=== PATIENT | female | born 1995 | race Caucasian/White ===

== ENCOUNTER 2016-04-12 20:00 | Emergency (ER) | payer MEDICAID ==
[2015-01-04 06:32] VITALS: BMI 23.2
[~2016-04-12 20:00] MED LIST: CLARITIN 10 MG10 MG PO; IBUPROFEN600 MG PO; MIRALAX17 GM PO; PERCOCET 5-3251 TAB PO; PRENAVITE1 TAB PO; PROBIOTIC1 EAC1 PO; ZOLOFT100 MG PO; ZYRTEC10 MG PO
[2016-04-12 21:44] LABS: APPEARANCE HAZY (CLEAR); BILIRUBIN NEGATIVE (NEGATIVE); COLOR YELLOW (YELLOW); GLUCOSE NEGATIVE (NEGATIVE); KETONE NEGATIVE (NEGATIVE); LEUKOCYTE ESTERASE 2+ (NEGATIVE); NITRITE NEGATIVE (NEGATIVE); PROTEIN NEGATIVE (NEGATIVE); SPECIFIC GRAVITY 1.015 (1.005-1.020); UROBILINOGEN NORMAL (NORMAL)
[2016-04-12 21:45] LABS: BACTERIA FEW /hpf (NONE SEEN); EPITHELIAL CELLS 0-5 /hpf (0-5); RED CELLS - URINE OCC /hpf (0-5)
[2016-04-12 21:49] LABS: HCG URINE NEGATIVE (NEGATIVE)
== END 2016-04-12 22:23 | disposition home or self-care (01) ==
LOC: D.ER 20:00
PROVIDERS: Family Medicine
DX: N76.0 Acute vaginitis (principal); R10.2 Pelvic and perineal pain

== ENCOUNTER 2016-05-11 09:38 | Day surgery (SDC) | payer MEDICAID ==
[~2016-05-11] VITALS: Ht 162.6 cm; Wt 47.3 kg
[2016-05-11 11:27] LABS: ALBUMIN 4.6 g/dL (3.4-5.0); ALKALINE PHOSPHATASE 92 U/L (46-116); ALT (SGPT) 26 U/L (10-68); BILIRUBIN - TOTAL 0.24 mg/dL (0.2-1.3); CALC OSMOLALITY 278 mosm/kg (275-300); CALCIUM 9.3 mg/dL (8.5-10.1); CARBON DIOXIDE 26.4 mmol/L (21.0-32.0); CHLORIDE - SERUM 104 mmol/L (98-107); CREATININE - SERUM 0.8 mg/dL (0.6-1.3); GLUCOSE 84 mg/dL (74-106); POTASSIUM - SERUM 4.3 mmol/L (3.5-5.1); PROTEIN - SERUM 8.7 g/dL (6.4-8.2); SODIUM 141 mmol/L (136-145); UREA NITROGEN 9 mg/dL (7-18); eGFR NON AFRICAN AMERICAN > 90 mL/min (90-120)
[2016-05-11 11:33] LABS: APPEARANCE SLT CLOUDY (CLEAR); BACTERIA MANY /hpf (NONE SEEN); BILIRUBIN NEGATIVE (NEGATIVE); COLOR YELLOW (YELLOW); GLUCOSE NEGATIVE (NEGATIVE); KETONE NEGATIVE (NEGATIVE); LEUKOCYTE ESTERASE 2+ (NEGATIVE); MUCUS >1+ /lpf (NONE SEEN); NITRITE NEGATIVE (NEGATIVE); PROTEIN 1+ mg/dL (NEGATIVE); UROBILINOGEN NORMAL (NORMAL); YEAST NONE SEEN /hpf (NONE SEEN)
[2016-05-11 11:34] LABS: BASOPHILS 0.4 % (0.0-2.0); EOSINOPHILS 0.5 % (0-7); HEMOGLOBIN 15.1 g/dL (12-16); IMMATURE GRANULOCYTES 0.1 % (0-5); LYMPHOCYTES 21.2 % (15-50); MCH 31.1 pg (26.0-34.0); MCHC 33.6 g/dL (31.0-37.0); MCV 92.8 fL (80.0-100.0); MEAN PLATELET VOLUME 10.6 fL (7.4-10.4); NEUTROPHILS 72.8 % (40-80); PLATELET COUNT 284 10x3/uL (130-400); RBC 4.85 10x6/uL (4.00-5.40); RDW 13.4 % (11.5-14.5); WBC 8.2 10x3/uL (4.8-10.8)
[2016-05-11 15:11] LABS: HCG URINE NEGATIVE (NEGATIVE)
--- NOTE | 2016-05-11 17:33 | NUR ---
BLAKELY REPLACED BY DR. BATES DUE TO INFECTION AROUND URETHRA WITH INITIAL BLAKELY CATHETER.
--- NOTE | 2016-05-11 17:38 | NUR ---
700ML YELLOW URINE
[2016-05-11 18:27] VITALS: BP 108/66
--- NOTE | 2016-05-11 18:42 | NUR ---
RECD TO ROOM 2227 VIA BED AT PRESENT.
--- NOTE | 2016-05-11 18:50 | NUR ---
PATIENT SITTING UP IN BED WITH IV INTACT. VS STABLE. EATING REGULAR DIET AT THIS TIME. NO COMPLAINTS. WILL CONTINUE TO MONITOR. CALL SHELLY MARTINEZ.
[2016-05-11 19:00] VITALS: BP 100/55
--- NOTE | 2016-05-11 19:00 | NUR ---
PATIENT IN BED WATCHING TV. HOB 30 DEGREES. AAOX4. RR EVEN AND UNLABORED. 0 S/S OF DISTRESS. STATES PAIN IS A 7/10. IV TO LEFT AC PATENT WITH NO REDNESS OR SWELLING. BLAKELY SECURED WITH STATLOCK AND DRAINING TO GRAVITY. SRX2. BED LOW. CALL LIGHT WITHIN REACH.
--- NOTE | 2016-05-11 20:40 | OP ---
PATIENT NAME: TEETEE GURROLA MEDICAL RECORD: [id number] :95 LOCATION:[id number] ADMISSION DATE: SURGEON: CONRADO BATES MD DATE OF OPERATION: 05/11/2016 She is also a patient of Dr. Jayne Baker. PRIMARY SURGEON: Conrado Bates MD. MIXING TUMBLER OPERATOR SURGEON: None. ANESTHESIA: General anesthesia by Dr. Zhao and Shan Barnett CRNA. PREOPERATIVE DIAGNOSIS: Periurethral abscess. 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 PROCEDURES: Cystoscopy, excision of urethral diverticulum. SPECIMEN: Culture swabs and urethral diverticulum. ESTIMATED BLOOD LOSS: 100 mL. INDICATIONS: This is a 20-year-old female, , A0 who had her last menstrual period about 2 weeks ago. She has noticed increasing pain in the anterior vaginal area and in the region of the urethral meatus. She saw Dr. Baker about this yesterday and Dr. Baker noted that the mass or bulge was located just inferior to the urethral meatus posteriorly. There was a concern about a urethral diverticulum being present. Today, she went to the Emergency Room with increasing pain and she had an MRI with IV contrast performed of the pelvis. This showed a 1.2 cm mass near the distal urethra, which seemed not to communicate with the urethra. When I saw the patient, she was having in extreme amount of pain and it was difficult to fully examine her. However, when I pushed on the mass gently, no pus came out of the urethra. She was scheduled to have excision of a periurethral abscess as well as cystoscopy to verify the integrity of the urethra. She was given Ancef 1 gram IV in the Emergency Room. DESCRIPTION OF PROCEDURE: The patient was brought up to the operating room. She was given induction of general anesthesia. She was placed in the dorsal lithotomy position and prepped and draped. Upon examining the patient, I noted that there is about a 5 or 6 mm laceration in the right labia minora where it meets the vaginal mucosa. I was not certain what this is due to. Also, the vaginal cavity was filled with pus. We swabbed this pus with for bacteria as well as chlamydia, gonorrhea and syphilis. Due to the possibility of vaginitis, I asked anesthesia to give her metronidazole 500 mg IV also. We then used a 21-Armenian cystoscope with 30-degree lens for visualization. Normal saline was used for visualization. She has single ureteral orifices on each side. No bladder tumors were seen. Looking carefully at the urethra, no sign of an opening from a urethral diverticulum was seen in the urethra. The bulge was just inferior to the urethral meatus and towards the right side. I rachele an upside down U over this mass with marking pen. My intention was to create a vaginal mucosal flap and then dissect this abscess cavity out. The anterior vaginal wall was infiltrated with Pitressin solution. Twenty units of Pitressin was dissolved in 100 cc of normal saline and this solution was injected with a OPERATIVE REPORT [id number] TEETEE GURROLA 25-gauge needle to produce hydrodissection. The upside down U incision was then made with a #15 blade and then Metzenbaum scissors were used to raise a vaginal mucosal flaps. We had the discrete, round, soft infected glans well exposed. I attempted to put a Jack forceps on it for traction to try to get at the base of the glans. In doing this, we saw copious quantities of pus coming out of the ulceration on the right labia minora and also out of the urethra. This then indicates spontaneous drainage tracts from the periurethral abscess to create a urethral diverticulum. Further dissection was performed until we identified the communication of the urethral diverticulum to the urethra. About 3-4 mm of the urethra was excised with the urethral diverticulum. We could see the Mcgrath catheter, which is a 16-Armenian Mcgrath catheter inserted after cystoscopy through the defect in the urethra. This is at the very distal urethra and therefore should not affect her urinary continence. The tail of the abscess ran deeper onto the patient's right side around the lateral aspect of the urethra. There was no further involvement of the urethra towards the tail. We used Bovie to finally truncate the tail when we got to normal tissue. This created some bleeding from the bladder. With good visualization, we cauterized the bleeding source as well as we could, also a lap sponge was placed in there and pressure was applied for about 5 minutes to stanch the bleeding. The specimen was sent to pathology in formalin. At the end of the 5 minutes, we removed the lap sponge. There was still a little bit of bleeding, which was venous in nature. The urethra was repaired with running 4-0 Monocryl. We then inserted some Surgicel into the location of the apex of the periurethral glands where its blood supply had been and applied some more pressure and this stopped the bleeding. The vaginal mucosa was reapproximated using running 4-0 Monocryl. I also repaired the ulceration on the right labia minora where it had burst open spontaneously to drain the pus. The vaginal cavity was washed out with normal saline and the saline was suctioned out. Because the Mcgrath catheter that we inserted during surgery had been contaminated with pus, we deflated the balloon and removed this Mcgrath catheter. A brand new Mcgrath catheter was inserted at the end of the case and put to bag drainage. She will have this Mcgrath catheter for a period of 6 weeks to allow the urethra to heal. A vaginal packing consisting of Kerlix, 2 inches wide infiltrated with Silvadene cream was placed into the vagina. The patient was awakened and brought to the recovery room. I will keep her overnight for observation. TRANSINT:[id number] Voice Confirmation ID: [id number] DOCUMENT ID: [id number] CONRADO BATES MD at 2040 CC: [id number] DICTATION DATE: 05/11/161817 CARDIOGRAPH OPERATOR: 05/11/161954 [facility] [address] [place] [address]
--- NOTE | 2016-05-11 22:00 | NUR ---
ASSESSMENT COMPLETE. INITIATED ANTIBIOTICS PER ORDER. PERCOCET GIVEN FOR PAIN. ZOFRAN GIVEN FOR NAUSEA PER TELEPHONE ORDER FROM DR. BATES. WILL REASSESS.
[2016-05-11 23:00] VITALS: BP 102/36
--- NOTE | 2016-05-12 | NUR ---
PATIENT SLEEPING WITH NO DISTRESS NOTED. CALL LIGHT WITHIN REACH.
--- NOTE | 2016-05-12 04:40 | NUR ---
PATIENT C/O PAIN. STATES THAT PERCOCET DID NOT REALLY HELP LAST NIGHT. MORPHINE GIVEN PER ORDER. WILL REASSESS.
[2016-05-12 04:52] VITALS: Ht 162.6 cm; Wt 47.3 kg
[2016-05-12] MEDS ORDERED: ZYRTEC10 MG PO (04:57)
[2016-05-12] MEDS ORDERED: VALTREX1000 MG PO (04:58)
[2016-05-12] MEDS ORDERED: ZOLOFT100 MG PO (04:59)
[2016-05-12] MEDS ORDERED: AMBIEN10 MG PO (04:59)
--- NOTE | 2016-05-12 06:30 | NUR ---
VAGINAL PACKING REMOVED PER ORDER. PERCOCET GIVEN FOR PAIN AND ZOFRAN GIVEN FOR NAUSEA.
[2016-05-12 07:55] VITALS: BP 97/61
[2016-05-12] MEDS ORDERED: FLAGYL500 MG PO (09:33)
--- NOTE | 2016-05-12 09:35 | NUR ---
[place] [facility] [place] SPOKE WITH CADY, PHARMACIST.
--- NOTE | 2016-05-12 12:30 | NUR ---
EDUCATED PATIENT ON BLAKELY CARE, CHANGING OUT CATHETER BAG TO LEG BAG, AND BACK TO THE LARGER BAG. PATIENT DEMONSTRATED. SHOWED PATIENT HOW TO WORK THE STAT LOCK AND DEMONSTRATED. EXPLAINED AND SHOWED PATIENT HOW TO EMPTY CATHETER AND PATIENT DEMONSTRATED. PATIENT DENIES FURTHER QUESTIONS. EXPLAINED TO THE PATIENT THE IMPORTANCE OF KEEPING VAGINAL AREA CLEAN AND KEEPING BLAKELY CATHETER TUBING CLEANED. EXPLAINED TO PATIENT TO DO BLAKELY CATHETER TWICE A DAY. PATIENT VERBALIZED UNDERSTANDING STRESSING CONCERN FOR PAIN FROM SURGERY. EXPLAINED TO PATIENT TO PAT VAGINA CLEAN IF NEEDED, TO BE GENTLE BUT TO KEEP AREA CLEAN, AND TO DO BLAKELY CARE AFTER HAVING A BM. PATIENT VERBALIZED UNDERSTANDING. D/C IV WITH CATH INTACT.
--- NOTE | 2016-05-12 13:00 | NUR ---
PATIENT LEFT VIA WHEELCHAIR
== END 2016-05-12 13:00 | disposition home or self-care (01) ==
LOC: D.OPS 09:38 → D.ER 09:38 → D.MS 09:38 → EDSTATUS 15:00 → D.MS 15:16 → D.OPS 05-12 13:00
PROVIDERS: Physician Assistant
DX: N36.1 Urethral diverticulum (principal); N34.0 Urethral abscess; N76.6 Ulceration of vulva

== ENCOUNTER 2016-06-21 06:32 | Day surgery (SDC) | payer MEDICAID ==
[2016-06-20 10:31] LABS: MCHC 32.6 g/dL (31.0-37.0); MCV 95.1 fL (80.0-100.0); RBC 4.52 10x6/uL (4.00-5.40); RDW 13.2 % (11.5-14.5); WBC 6.7 10x3/uL (4.8-10.8)
[~2016-06-21] VITALS: Ht 160 cm; Wt 45.4 kg
[~2016-06-21 06:32] MED LIST changes: +AMBIEN10 MG PO; +FLAGYL500 MG PO; +VALTREX1000 MG PO
[2016-06-21 08:23] VITALS: BP 112/58; Ht 160 cm; Wt 45.4 kg
[2016-06-21 08:28] LABS: HCG URINE NEGATIVE (NEGATIVE)
[2016-06-21] MEDS ORDERED: VALIUM5 MG PO (09:57)
[2016-06-21] MEDS ORDERED: NORCO 7.5/325 T1 TA1 PO (09:57)
--- NOTE | 2016-06-21 15:27 | OP ---
PATIENT NAME: TEETEE GURROLA MEDICAL RECORD: [id number] :95 LOCATION:D.OPS ADMISSION DATE: SURGEON: EMILY GUAN MD DATE OF OPERATION: 06/21/2016 SURGEON: Dr. Emily Guan. PREOPERATIVE DIAGNOSIS: 1. Anal fissure. 2. Rectal pain. 3. Painful rectal bleeding. POSTOPERATIVE DIAGNOSES: 1. Anal fissure. 2. Rectal pain. 3. Painful rectal bleeding. PROCEDURE PERFORMED: 1. Rectal examination under anesthesia. 2. Lateral internal sphincterotomy. 3. Rectal polypectomy. ANESTHESIA: General. COMPLICATIONS: None. SPECIMENS: Rectal polyp. Case was contaminated. ESTIMATED BLOOD LOSS: Minimal. OPERATIVE COURSE: After consent was obtained, the patient was taken to the operating room and placed in the supine position on the operating table. Next, general anesthesia was given via endotracheal intubation. After a timeout was taken to confirm the correct patient and procedure, the patient was then placed in the [facility] stirrups. The perineum was prepped and draped in typical sterile fashion. A 30 cc of local anesthetic were used for a perineal block. The rectum was serially dilated using the Devine-Hill retractors. There is a posterior linear tear consistent with her history of anal fissure. At this time, the internal sphincter muscle was identified. The mucosa was incised with a 15-blade scalpel. Using Metzenbaum scissors, the internal sphincter muscle was dissected out, it was incised using Metzenbaum scissors. The mucosa was then closed with a 2-0 Vicryl suture. The posterior linear mucosal tear at the anal fissures site was cauterized. The mucosa was then closed using 2-0 Vicryl suture. There was a rectal polyp noted in the posterior midline, it was grasped and excised at the level of mucosa with Metzenbaum scissors. The mucosal defect was closed with 2-0 Vicryl suture. The rectum was then packed with Americaine and Gelfoam. At the end of the case, all needle and instrument counts were correct. No complications occurred. The patient was extubated and transferred to the PACU in stable condition. TRANSINT:[id number] Voice Confirmation ID: [id number] DOCUMENT ID: [id number] OPERATIVE REPORT [id number] TEETEE GURROLA EMILY GUAN MD at 1527 CC: [id number] DICTATION DATE: 06/21/16 1003 WIRE MACHINE CUTTER: 06/21/16 1502 [facility] 06/21/16 [id number] [place] [address]
== END 2016-06-21 12:30 | disposition home or self-care (01) ==
LOC: D.OPS 06:32 → D.PAN 09:00 → D.OPS 10:45 → D.PAN 10:45 → D.OPS 12:30
PROVIDERS: Anesthesiology; Surgery
DX: K60.2 Anal fissure, unspecified (principal); K62.89 Other specified diseases of anus and rectum; K62.5 Hemorrhage of anus and rectum; K21.9 Gastro-esophageal reflux disease without esophagitis; Z01.812 Encounter for preprocedural laboratory examination

== ENCOUNTER → 2018-06-03 13:20 | Outpatient (CLI) | payer OTHER ==
[2016-06-21 08:23] VITALS: BMI 17.7
[~2018-06-03 13:20] MED LIST changes: +NORCO 7.5/325 T1 TA1 PO; +VALIUM5 MG PO
[2018-06-03 15:29] LABS: APPEARANCE CLEAR (CLEAR); BILIRUBIN NEGATIVE (NEGATIVE); COLOR YELLOW (YELLOW); GLUCOSE NEGATIVE (NEGATIVE); KETONE NEGATIVE (NEGATIVE); NITRITE NEGATIVE (NEGATIVE); PROTEIN NEGATIVE (NEGATIVE); SPECIFIC GRAVITY 1.015 (1.005-1.020); UROBILINOGEN NORMAL (NORMAL)
[2018-06-03 15:30] LABS: BACTERIA MODERATE /hpf (NONE SEEN); EPITHELIAL CELLS 0-5 /hpf (0-5); RED CELLS - URINE OCC /hpf (0-5)
== END | disposition home or self-care (01) ==
LOC: D.LDO 13:20
PROVIDERS: ATTEND Obstetrics & Gynecology
DX: O26.852 Spotting complicating pregnancy, second trimester (principal); Z3A.20 20 weeks gestation of pregnancy

== ENCOUNTER → 2018-07-03 09:48 | Outpatient (CLI) | payer OTHER ==
[2016-06-21 08:23] VITALS: BMI 17.7
[2018-07-03 11:22] LABS: BASOPHILS 0.1 % (0-2); EOSINOPHILS 0.6 % (0-7); HEMATOCRIT 35.2 % (36.0-48.0); HEMOGLOBIN 12.2 g/dL (12-16); IMMATURE GRANULOCYTES 0.6 % (0-5); LYMPHOCYTES 8.2 % (15-50); MCH 32.3 pg (26.0-34.0); MCHC 34.7 g/dL (31.0-37.0); MCV 93.1 fL (80.0-100.0); MEAN PLATELET VOLUME 9.9 fL (7.4-10.4); NEUTROPHILS 84.5 % (40-80); RBC 3.78 10x6/uL (4.00-5.40); RDW 13.5 % (11.5-14.5); WBC 9.4 10x3/uL (4.8-10.8)
[2018-07-03 11:25] LABS: PLATELET COUNT 166 10x3/uL (130-400)
[2018-07-03 11:26] LABS: ALBUMIN 2.8 g/dL (3.4-5.0); ALKALINE PHOSPHATASE 74 U/L (46-116); ALT (SGPT) 20 U/L (10-68); AMYLASE - SERUM 67 U/L (25-115); BILIRUBIN - TOTAL 0.18 mg/dL (0.2-1.3); CALC OSMOLALITY 274 mosm/kg (275-300); CALCIUM 8.4 mg/dL (8.5-10.1); CARBON DIOXIDE 24.8 mmol/L (21.0-32.0); CHLORIDE - SERUM 103 mmol/L (98-107); CREATININE - SERUM 0.5 mg/dL (0.6-1.3); GLUCOSE 86 mg/dL (74-106); LIPASE 140 U/L (73-393); POTASSIUM - SERUM 3.4 mmol/L (3.5-5.1); PROTEIN - SERUM 6.4 g/dL (6.4-8.2); SODIUM 139 mmol/L (136-145); UREA NITROGEN 7 mg/dL (7-18); eGFR NON AFRICAN AMERICAN > 90 mL/min (90-120)
[2018-07-03 11:35] LABS: APPEARANCE HAZY (CLEAR); BACTERIA MODERATE /hpf (NONE SEEN); BILIRUBIN NEGATIVE (NEGATIVE); COLOR YELLOW (YELLOW); GLUCOSE NEGATIVE (NEGATIVE); KETONE NEGATIVE (NEGATIVE); MUCUS <1+ /lpf (NONE SEEN); NITRITE NEGATIVE (NEGATIVE); PROTEIN NEGATIVE (NEGATIVE); RED CELLS - URINE OCC /hpf (0-5); UROBILINOGEN NORMAL (NORMAL); WHITE CELLS - URINE 0-5 /hpf (0-5)
== END | disposition home or self-care (01) ==
LOC: D.LDO 09:48
PROVIDERS: ATTEND Obstetrics & Gynecology
DX: O26.892 Other specified pregnancy related conditions, second trimester (principal); Z3A.25 25 weeks gestation of pregnancy

== ENCOUNTER → 2018-09-24 14:42 | Outpatient (CLI) | payer MEDICAID ==
[2016-06-21 08:23] VITALS: BMI 17.7
[~2018-09-24 14:42] MED LIST changes: +HYDROCODON-ACE1 EAC7 PO; +PROTONIX20 MG PO
== END | disposition home or self-care (01) ==
LOC: D.LDO 14:42
PROVIDERS: ATTEND Obstetrics & Gynecology
DX: O36.8130 Decreased fetal movements, third trimester, not applicable or unspecified (principal); Z3A.36 36 weeks gestation of pregnancy

== ENCOUNTER → 2018-09-26 09:31 | Outpatient (CLI) | payer MEDICAID ==
[2016-06-21 08:23] VITALS: BMI 17.7
[2018-09-26 11:40] LABS: APPEARANCE CLEAR (CLEAR); BILIRUBIN NEGATIVE (NEGATIVE); COLOR YELLOW (YELLOW); GLUCOSE NEGATIVE (NEGATIVE); KETONE NEGATIVE (NEGATIVE); NITRITE NEGATIVE (NEGATIVE); PROTEIN NEGATIVE (NEGATIVE); SPECIFIC GRAVITY 1.005 (1.005-1.020); UROBILINOGEN NORMAL (NORMAL)
[2018-09-26 11:41] LABS: BACTERIA FEW /hpf (NONE SEEN); EPITHELIAL CELLS RARE /hpf (0-5); RED CELLS - URINE RARE /hpf (0-5); WHITE CELLS - URINE OCC /hpf (0-5)
== END | disposition home or self-care (01) ==
LOC: D.LDO 09:31
PROVIDERS: ATTEND Student in an Organized Health Care Education/Training Program
DX: O26.899 Other specified pregnancy related conditions, unspecified trimester (principal); Z3A.00 Weeks of gestation of pregnancy not specified

== ENCOUNTER 2018-09-29 19:52 | Outpatient (CLI) | payer MEDICAID ==
[~2018-09-29] VITALS: Ht 160 cm; Wt 82.7 kg
[~2018-09-29 19:52] MED LIST changes: -HYDROCODON-ACE1 EAC7 PO; -PROTONIX20 MG PO
[2018-09-29 20:02] VITALS: BP 130/82; Ht 160 cm; Wt 82.7 kg
[2018-09-29] MEDS ORDERED: PROTONIX20 MG PO (20:03)
[2018-09-29] MEDS ORDERED: PRENAVITE1 TAB PO (20:04)
[2018-09-29 20:36] LABS: APPEARANCE CLEAR (CLEAR); BILIRUBIN NEGATIVE (NEGATIVE); COLOR STRAW (YELLOW); GLUCOSE NEGATIVE (NEGATIVE); KETONE NEGATIVE (NEGATIVE); NITRITE NEGATIVE (NEGATIVE); PROTEIN NEGATIVE (NEGATIVE); SPECIFIC GRAVITY 1.005 (1.005-1.020); UROBILINOGEN NORMAL (NORMAL)
[2018-09-29 20:37] LABS: WHITE CELLS - URINE 0-5 /hpf (0-5)
[2018-09-29 20:38] LABS: BACTERIA FEW /hpf (NONE SEEN); EPITHELIAL CELLS 0-5 /hpf (0-5); RED CELLS - URINE OCC /hpf (0-5)
[2018-09-29 20:48] LABS: BASOPHILS 0.1 % (0-2); EOSINOPHILS 0.8 % (0-7); HEMATOCRIT 36.1 % (36.0-48.0); HEMOGLOBIN 12.4 g/dL (12-16); IMMATURE GRANULOCYTES 0.6 % (0-5); LYMPHOCYTES 11.1 % (15-50); MCH 31.9 pg (26.0-34.0); MCHC 34.3 g/dL (31.0-37.0); MCV 92.8 fL (80.0-100.0); MEAN PLATELET VOLUME 10.5 fL (7.4-10.4); NEUTROPHILS 81.4 % (40-80); PLATELET COUNT 152 10x3/uL (130-400); RBC 3.89 10x6/uL (4.00-5.40); RDW 13.6 % (11.5-14.5); WBC 12.7 10x3/uL (4.8-10.8)
[2018-09-29 20:57] LABS: ALKALINE PHOSPHATASE 132 U/L (46-116); ALT (SGPT) 21 U/L (10-68); AMYLASE - SERUM 72 U/L (25-115); BILIRUBIN - TOTAL 0.27 mg/dL (0.2-1.3); CALC OSMOLALITY 279 mosm/kg (275-300); CALCIUM 9.4 mg/dL (8.5-10.1); CARBON DIOXIDE 21.9 mmol/L (21.0-32.0); CHLORIDE - SERUM 105 mmol/L (98-107); CREATININE - SERUM 0.7 mg/dL (0.6-1.3); GLUCOSE 112 mg/dL (74-106); LIPASE 196 U/L (73-393); POTASSIUM - SERUM 3.5 mmol/L (3.5-5.1); PROTEIN - SERUM 6.7 g/dL (6.4-8.2); SODIUM 141 mmol/L (136-145); UREA NITROGEN 8 mg/dL (7-18); eGFR NON AFRICAN AMERICAN > 90 mL/min (90-120)
== END 2018-09-29 23:21 | disposition home or self-care (01) ==
LOC: D.LDO 19:52 → D.ER 19:52 → EDSTATUS 20:55 → D.LD 20:58 → D.LDO 23:21
PROVIDERS: Family Medicine; ATTEND Obstetrics & Gynecology
DX: O26.893 Other specified pregnancy related conditions, third trimester (principal); R07.9 Chest pain, unspecified; R51 Headache; R10.9 Unspecified abdominal pain

== ENCOUNTER 2018-10-09 05:05 | Inpatient (IN) | payer MEDICAID ==
[~2018-10-09] VITALS: Ht 160 cm; Wt 83.9 kg
[~2018-10-09 05:05] MED LIST changes: +PROTONIX20 MG PO
[2018-10-09 05:26] VITALS: BP 135/75; Ht 160 cm; Wt 83.9 kg
[2018-10-09 05:58] LABS: HEMATOCRIT 35.1 % (36.0-48.0); HEMOGLOBIN 12.2 g/dL (12-16); MCH 31.8 pg (26.0-34.0); MCHC 34.8 g/dL (31.0-37.0); MCV 91.4 fL (80.0-100.0); MEAN PLATELET VOLUME 10.5 fL (7.4-10.4); RBC 3.84 10x6/uL (4.00-5.40); RDW 13.6 % (11.5-14.5)
[2018-10-09 20:25] VITALS: BP 126/70
[2018-10-10 06:23] LABS: BASOPHILS 0.1 % (0-2); EOSINOPHILS 0.1 % (0-7); HEMATOCRIT 29.2 % (36.0-48.0); HEMOGLOBIN 10.3 g/dL (12-16); IMMATURE GRANULOCYTES 0.5 % (0-5); LYMPHOCYTES 8.1 % (15-50); MCH 32.1 pg (26.0-34.0); MCHC 35.3 g/dL (31.0-37.0); MEAN PLATELET VOLUME 10.1 fL (7.4-10.4); MONOCYTES 4.8 % (2-11); NEUTROPHILS 86.4 % (40-80); PLATELET COUNT 165 10x3/uL (130-400); RBC 3.21 10x6/uL (4.00-5.40); RDW 13.6 % (11.5-14.5)
[2018-10-10 06:46] LABS: WBC 17.8 10x3/uL (4.8-10.8)
[2018-10-10 07:14] LABS: RAPID PLASMA REAGIN Non Reactive (Non Reactive)
[2018-10-10 09:51] VITALS: BP 123/75
[2018-10-10 12:28] VITALS: BP 122/70
[2018-10-10 15:23] VITALS: BP 128/57
[2018-10-10 19:35] VITALS: BP 117/69
[2018-10-10] MEDS ORDERED: HYDROCODON-ACE1 EAC7 PO (20:37)
[2018-10-10] MEDS ORDERED: IBUPROFEN600 MG PO (20:37)
== END 2018-10-10 21:29 | disposition home or self-care (01) | DRG 807 ==
LOC: D.LD 05:05 → D.WS 05:05 → D.LD 22:00 → D.WS 10-10 09:14
PROVIDERS: ADMIT Obstetrics & Gynecology; ATTEND Obstetrics & Gynecology
PROC: 10E0XZZ Delivery of Products of Conception, External Approach (ICD-10-PCS; principal; 2018-10-09)
PROC: 3E033VJ Introduction of Other Hormone into Peripheral Vein, Percutaneous Approach (ICD-10-PCS; 2018-10-09)
DX: O98.32 Other infections with a predominantly sexual mode of transmission complicating childbirth (principal); Z37.0 Single live birth; A60.00 Herpesviral infection of urogenital system, unspecified; Z3A.39 39 weeks gestation of pregnancy

== ENCOUNTER 2018-12-18 11:35 | Emergency (ER) | payer MEDICAID ==
[~2018-12-18] VITALS: Ht 160 cm; Wt 72.7 kg
[~2018-12-18 11:35] MED LIST changes: +HYDROCODON-ACE1 EAC7 PO
[2018-12-18 11:37] VITALS: Ht 160 cm; Wt 72.7 kg
[2018-12-18] MEDS ORDERED: TYLENOL W/CODEI1 TAB PO (13:26)
[2018-12-18] MEDS ORDERED: BACLOFEN20 M1 PO (13:26)
[2018-12-18 13:54] VITALS: BP 109/72
== END 2018-12-18 13:56 | disposition home or self-care (01) ==
LOC: D.ER 11:35
DX: S16.1XXA Strain of muscle, fascia and tendon at neck level, initial encounter (principal); V29.88XA Motorcycle rider (driver) (passenger) injured in other specified transport accidents, initial encounter

== ENCOUNTER 2020-04-23 08:31 | Day surgery (SDC) | payer MEDICAID ==
[2020-04-20 11:13] LABS: BASOPHILS 0.5 % (0-2); EOSINOPHILS 0.9 % (0-7); HEMATOCRIT 39.8 % (36.0-48.0); HEMOGLOBIN 13.4 g/dL (12-16); IMMATURE GRANULOCYTES 0.2 % (0-5); LYMPHOCYTE ABS# 1.72 10x3/uL (1.18-3.74); LYMPHOCYTES 29.5 % (15-50); MCH 30.8 pg (26.0-34.0); MCHC 33.7 g/dL (31.0-37.0); MCV 91.5 fL (80.0-100.0); MEAN PLATELET VOLUME 9.6 fL (7.4-10.4); MONOCYTES 2.9 % (2-11); NEUTROPHIL ABS# 3.85 10x3/uL (1.56-6.13); PLATELET COUNT 274 10x3/uL (130-400); RBC 4.35 10x6/uL (4.00-5.40); WBC 5.8 10x3/uL (4.8-10.8)
[~2020-04-23] VITALS: Ht 160 cm; Wt 82.1 kg
[~2020-04-23 08:31] MED LIST changes: +BACLOFEN20 M1 PO; +HALDOL5 MG PO; +OMNICEF300 MG PO; +TYLENOL W/CODEI1 TAB PO
[2020-04-23 09:36] VITALS: BP 121/63; Ht 160 cm; Wt 82.1 kg
[2020-04-23 09:44] LABS: HCG URINE NEGATIVE (NEGATIVE)
--- NOTE | 2020-04-23 12:36 | NUR ---
1220 PT GIVEN SALTINE CRACKERS AND SPRITE.
--- NOTE | 2020-04-23 14:55 | NUR ---
1250 MEDICATED FOR PAIN. ABDOMINAL. ABDOMINAL BINDER APPLIED TO PT. SECOND BAG OF IV FLUID STARTED.
--- NOTE | 2020-04-23 14:57 | NUR ---
1330 IV REMOVED AND INSTRUCTIONS GIVEN.
--- NOTE | 2020-04-30 13:49 | OP ---
PATIENT NAME: TEETEE GURROLA MEDICAL RECORD: [id number] :95 [facility] DATE: SURGEON: EDITH STORY MD DATE OF OPERATION: 04/23/2020 PREOPERATIVE DIAGNOSIS: Multiparity, the patient desires permanent sterility. POSTOPERATIVE DIAGNOSIS: Multiparity, the patient desires permanent sterility. PROCEDURE: Laparoscopic bilateral tubal ligation via bipolar cautery. ANESTHESIA: General endotracheal. INTRAVENOUS FLUIDS: Per anesthesia record. SURGEON: Edith Story MD FINDINGS: Grossly normal-appearing fallopian tube, ovaries and uterus. SPECIMENS: None. COMPLICATIONS: None apparent. DESCRIPTION OF PROCEDURE: The patient was taken to the operating room where general anesthesia was achieved without difficulty. The patient was prepped and draped in normal sterile fashion in the dorsal lithotomy position. The bladder was drained of approximately 100 cc of straw colored urine and a sponge stick was placed into the vagina for uterine elevation. Following prep and draping, a 5-mm incision was made in the skin infraumbilically and a 5 mm bladeless trocar was used to enter the intraperitoneal space under direct visualization of the laparoscope. Intraperitoneal placement was confirmed by removing the introducer and reintroducing the camera into the intraperitoneal space. At this time, attention was turned to an approximately 5 cm superior to the midline and above the pubic symphysis and a 5-mm incision was made in the skin with an 11 blade. A second 5 mm bladeless trocar was used to enter the intraperitoneal space under direct visualization of the laparoscope. Survey of the abdomen and pelvis was performed. Attention was then turned to the right fallopian tube where the Kleppinger bipolar cautery was used to completely desiccate and approximately 5-6 cm section of the mid portion of the tube. Good hemostasis was noted on the right side. Attention was then turned to the left fallopian tube where another 5-6 cm section of the midportion of the fallopian tube was completely desiccated using bipolar cautery. The patient was partially desufflated and good hemostasis was noted from all surgical sites. The patient was fully desufflated and the trocars were removed. The skin incisions were repaired with 3-0 Vicryl in an interrupted fashion and the sponge stick was removed from the vagina. The patient tolerated the procedure well and was transported to postanesthesia recovery stable without incident. TRANSINT:[id number] Voice Confirmation ID: [id number] DOCUMENT ID: [id number] OPERATIVE REPORT [id number] TEETEE GURROLA, EDITH Christian MD at 1349 CC: [id number] DICTATION DATE: 04/29/20 1515 COMMUNICATIONS REPRESENTATIVE: 04/29/20 1606 [facility] 04/23/20 [place] [id number]
== END 2020-04-23 14:00 | disposition home or self-care (01) ==
LOC: D.OPS 08:31
PROVIDERS: ATTEND Obstetrics & Gynecology
DX: Z30.2 Encounter for sterilization (principal); Z64.1 Problems related to multiparity; Z39.2 Encounter for routine postpartum follow-up; B00.9 Herpesviral infection, unspecified